=== PATIENT | female | born 2000 | race Caucasian/White ===

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

== ENCOUNTER 2019-02-17 00:47 | Emergency (ER) | payer BC, OTHER ==
[~2019-02-17] VITALS: Ht 170.2 cm; Wt 86.2 kg
--- NOTE | 2019-02-17 01:43 | ED Lower Extremity ---
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, AND WAS JUMPING AND CAME DOWN WRONG WITH HER LEFT LEG AND TWISTED HER LEFT ANKLE OCCURRED AT "0024" TODAY, AND CAME STRAIGHT HERE HAS NOT TAKEN ANYTHING FOR PAIN, NOR APPLIED ICE, ETC NO PARESTHESIAS OR MOTOR DEFICITS NO OTHER INJURIES HAS HAD A COUPLE OF PRIOR SPRAINS TO THIS ANKLE IN PAST, BUT NO FRACTURES OR SURGERIES PCP: [facility] Allergies and Home Medications Allergies Coded Allergies: No Known Drug Allergies (Unverified , 02/17/19) Home Medications Naproxen 500 Mg Tablet, 500 MG PO BID Prescribed by: PENNY RODRIGUEZ on 02/17/19 0207 Patient Home Medication List Home Medication List Reviewed: Yes Review of Systems Constitutional: no symptoms reported : No LMP: Jan 24, 2019 Control/STD Prophylaxis: None Musculoskeletal: see HPI Skin: no symptoms reported Psychiatric/Neurological: No Symptoms Reported Past Komhpdq-Htpvhw-Wlmdeg Hx Patient Social History Alcohol Use: Rarely Uses Recreational Drug Use: No Smoking Status: Current Everyday Smoker Type Used: Electronic/Vapor Recent Foreign Travel: No Contact w/Someone Who Travel: No Recent Hopitalizations: No Seasonal Allergies Seasonal Allergies: No Past Medical History Surgeries: No Respiratory: Yes Asthma Cardiac: No Neurological: No Genitourinary: No Gastrointestinal: No Musculoskeletal: No Endocrine: No HEENT: No Cancer: No Psychosocial: No Integumentary: No Blood Disorders: No Physical Exam Vital Signs Vital Signs - First Documented 02/17/19 01:10 Temp 97.7 Pulse 96 Resp 18 B/P (MAP) 135/69 (91) O2 Delivery Room Air Capillary Refill : Height, Weight, BMI Height: '" Weight: lbs. oz. kg; BMI Method: General Appearance: WD/WN, no apparent distress Hips: bilateral hip normal inspection Legs: bilateral leg normal inspection Knees: bilateral knee normal inspection Ankles: right ankle normal inspection; left ankle bone tenderness, left ankle limited range of motion, left ankle pain, left ankle soft tissue tenderness, left ankle swelling, left ankle other (LATERAL MALLEOLUS; MOTOR/SENSORY/ VASCULAR INTACT) Feet: bilateral foot normal inspection Neurologic/Tendon: normal sensation, normal motor functions, normal tendon functions Neurologic/Psychiatric: fine arts chair II-XII nml as tested, no motor/sensory deficits, alert, normal mood/affect, oriented x 3 Skin: normal color, warm/dry; No rash Procedures/Interventions Splinting and Joint Reduction : John wrap: Yes Immobilizers: Step Light Walker s/m/lg Ordered: Crutches Progress/Results/Core Measures Results/Orders My Orders Orders - PENNY RODRIGUEZ DO Ankle, Left, 3 Views (02/17/19 01:27) John Bandage (02/17/19 01:53) Steplite (02/17/19 01:53) Rx-Naproxen (Rx-Naprosyn) (02/17/19 01:56) Crutches (02/17/19 02:00) Vital Signs/I&O 02/17/19 01:10 Temp 97.7 Pulse 96 Resp 18 B/P (MAP) 135/69 (91) O2 Delivery Room Air Diagnostic Imaging Comments XRAYS LEFT ANKLE--OLD APPEARING, TINY AVULSION. OTHER ISSA NO ACUTE PROCESS, PENDING RADIOLOGIST REVIEW Reviewed: Reviewed by Me Departure Impression Primary Impression: Left ankle sprain Disposition: HOME, SELF-CARE Condition: Stable Departure-Patient Inst. Referrals: NO,LOCAL PHYSICIAN (PCP) Primary Care Physician Patient Instructions: Ankle Sprain (DC), Going Up and Down Curbs or Stairs With a Walker or Crutches, How to Use Crutches, How to Use an Elastic Bandage Add. Discharge Instructions: JOHN WRAP, BOOT AND CRUTCHES NEEDED FOR COMFORT ICE TO AREA AT 20 MINUTE INTERVALS ELEVATE FOOT MUCH POSSIBLE FOLLOW UP WITH YOUR DR IN 1 WEEK FOR RECHECK All discharge instructions reviewed with patient and/or family. Voiced understanding. Scripts Naproxen (Naproxen) 500 Mg Tablet 500 MG PO BID, #20 TAB Prov: PENNY RDORIGUEZ DO 02/17/19 Images Extremities-Lower 1 - Moderate, Swelling, Tenderness PENNY RODRIGUEZ DO Feb 17, 2019 01:42
[2019-02-17] MEDS ORDERED: RX-NAPROXEN (NAPROSYN) 250 MG TAB PPK#4 PO STA (01:56)
[2019-02-17] MEDS ORDERED: NAPR-915 PO (02:07)
[2019-02-17 02:13] VITALS: BP 130/65
--- NOTE | 2019-02-17 06:56 | Diagnostic Imaging Report ---
INDICATION: Left ankle pain. AP, oblique and lateral views of the left ankle are obtained. FINDINGS: There is lateral ankle swelling. Note is made of rounded corticated ossific density adjacent to the medial malleolus. There is also corticated ossific density anterior to the ankle joint. These findings may be related to old ankle injury, however, no acute fracture or malalignment is seen. IMPRESSION: Probable old avulsion injuries involving the ankle without acute osseous abnormality detected. There is significant lateral ankle swelling and underlying ligamentous injury is not excluded. Dictated by: Dictated on workstation # [id number]
== END 2019-02-17 02:14 | disposition home or self-care (01) ==
LOC: EDUNIT# 00:47 → ER 00:50
DX: S93.402A Sprain of unspecified ligament of left ankle, initial encounter (principal); J45.909 Unspecified asthma, uncomplicated; F17.290 Nicotine dependence, other tobacco product, uncomplicated; X50.1XXA Overexertion from prolonged static or awkward postures, initial encounter; Y92.39 Other specified sports and athletic area as the place of occurrence of the external cause; Y93.39 Activity, other involving climbing, rappelling and jumping off
CPT/HCPCS: 73610; 84703